=== PATIENT | male | born 1990 | race Caucasian/White ===

== ENCOUNTER 2024-12-27 17:06 | Emergency (ER) | payer OTHER, SELFPAY ==
[2024-12-27 17:11] VITALS: BP 165/108
--- NOTE | 2024-12-27 17:49 | ED.MUSCINJ ---
HPI-Injury
General
Chief Complaint: Musculo-Skeletal Complaint
Source: patient
Exam Limitations: none
Time Seen by Provider: 12/27/24 17:33
Nursing documentation reviewed up to this point in time: agreed with
History of Present Illness-Injury
Initial Injury comments:
34-year-old male with no significant past medical history states he was lifting his 2-year-old daughter to place her in the car seat yesterday and felt 'a little twinge' in the right shoulder but no significant pain. He woke up this morning feeling
'fine.' As a day progressed however the right shoulder pain progressed and today after lifting his 5-year-old into a shopping cart at 4 PM he had a sudden increase in the shoulder pain and now he can barely lift his arm due to the pain.
Past History
Past History
ED Past Medical History: None
ED Past Surgical History: Orthopedic
Social History
Tobacco: Non-smoker
Alcohol: Occasional
Personal:
Living: with family
Employment: Employed
Review of Systems
Review of Systems
Allergies reviewed?: Yes
All Other Systems: ROS reviewed and negative except as documented in HPI and ROS
Phy Exam
Physical Exam
Physical Exam:
GENERAL: No acute distress. A&Ox3.
CONSTITUTIONAL: Afebrile.
RESPIRATORY: Regular respirations, nonlabored, lungs clear.
CARDIOVASCULAR: Regular rate and rhythm, no murmurs, no rubs.
GI: Soft, nontender, normal BS
MUSCULOSKELETAL: There is no pain about the right shoulder with deep palpation, he has full range of motion and distal neurovascular intact. There is however a trigger point in the upper right trapezius muscle, pressure to this area immediately
reproduces his pain. Moves with ease. Well perfused.
SKIN: Warm, dry, pink
PSYCH: Normal mood and affect. Well kept, interactive and appropriate
NEUROLOGIC: Awake, alert and oriented. No focal neurological deficits
Injury Course
Orders/Labs/Results
Orders:
Orders
12/27/24 17:33
Shoulder, Right, Trauma [CR Shoulder, Trauma - Right] Urgent
Comment:
Reason For Exam: pain after lifting
MDM/Problems Addressed
Differential Diagnosis Includes:
Cervical strain, upper back strain, trigger point
MDM/Problems Addressed:
34-year-old male with no significant past medical history states he was lifting his 2-year-old daughter to place her in the car seat yesterday and felt 'a little twinge' in the right shoulder but no significant pain. He woke up this morning feeling
'fine.' As a day progressed however the right shoulder pain progressed and today after lifting his 5-year-old into a shopping cart at 4 PM he had a sudden increase in the shoulder pain and now he can barely lift his arm due to the pain.
Initial x-ray order was canceled as patient has no abnormal findings on his shoulder/right upper extremity exam. Rather, there is a definite trigger point in the right upper trapezius muscle that is causing his symptoms.
Rx for Flexeril sent to his pharmacy
*Pulse Oximetry
SaO2: 99
Oxygen Mode of Delivery: Room air
Patient hypoxic: not evaluated
*Critical Care Note
Total Time (30-74mins, 75-104mins- exclusive of procedures): Not Applicable
ED Attending Note
-
Portions of this chart may have been created with voice recognition software.� Occasional wrong word or��sound alike� substitutions may have occurred due to the inherent limitations of voice recognition software.
Discharge Plan
Departure
Patient Disposition: Home (Routine Discharge)
Date of Disposition: 12/27/24
Time of Disposition: 17:49
Patient with high blood pressure during this ER visit?: Yes
Condition: Good
Discharge Problem:
Spasm of right trapezius muscle, Trigger point of thoracic region
Instructions: Muscle Strain (DC), Massage, BLOOD PRESSURE
Prescriptions:
New
cyclobenzaprine 10 mg tablet
10 mg PO TID PRN (Reason: muscle spasm) Qty: 15 0RF
No Action
doxycycline monohydrate 100 mg capsule
100 mg PO BID 7 Days Qty: 14 0RF
Referrals:
JANICE NEAL, DO [Family Provider, Family Practice] - As needed
Activity Restrictions/Additional Instructions:
As we discussed, I sent a prescription to your pharmacy for Flexeril muscle relaxant. You have a trigger point muscle spasm in the upper trapezius muscle. Gentle massage to the area frequently, warm moist compresses or warm shower or heating pad
and avoid lifting until the area is better.
Interventions
Interventions:
*Risk Screen - Suicide Last Done: 12/27/24 17:11
*General Assessment Last Done: 12/27/24 17:11
*Neglect/Abuse Screening Last Done: 12/27/24 17:11
*ED COVID-19 Vaccine History Last Done: 12/27/24 17:11
*ED Influenza Vaccine History Last Done: 12/27/24 17:11
*Nursing Disposition Last Done: 12/27/24 18:13
Discharge Date and Time
Discharge Date/Time: 12/27/24 18:13
Print Language: GREENLANDIC
[2024-12-27 17:52] VITALS: BP 140/101
== END 2024-12-27 18:13 | disposition home or self-care (01) ==
LOC: EMR 17:06
PROVIDERS: EMERGENCY PHYSICIAN Emergency Medicine; FAMILY PHYSICIAN Family Medicine
DX: M62.838 Other muscle spasm (principal)
CPT/HCPCS: 99282